=== PATIENT | female | born 1950 | race Caucasian/White ===

== ENCOUNTER → 2016-03-08 | Outpatient (CLI) | payer MEDICARE | LOC: OD 09:02 | PROVIDERS: ATTEND Internal Medicine Pulmonary Disease | DX: J96.02 Acute respiratory failure with hypercapnia (principal); J90 Pleural effusion, not elsewhere classified; J40 Bronchitis, not specified as acute or chronic | CPT/HCPCS: 71020 ==

== ENCOUNTER → 2016-04-16 | Outpatient (CLI) | payer MEDICARE, MEDICAID | LOC: RAD 09:07 | PROVIDERS: ATTEND Specialist | DX: C34.11 Malignant neoplasm of upper lobe, right bronchus or lung (principal) | CPT/HCPCS: 71250 ==

== ENCOUNTER 2016-07-09 16:57 | Inpatient (IN) | payer MEDICARE, MEDICAID ==
--- NOTE | 2016-07-09 17:03 | ER Document Report ---
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 Pt notes sob. denies any fevers or chills. Pt nurse notes thick secretions. TRAVEL OUTSIDE OF THE [place] IN LAST 30 DAYS: No - HPI Onset: Other Onset/Duration: Persistent Quality of pain: No pain Severity: Moderate Pain Level: Denies Associated symptoms: Productive cough, Shortness of breath Exacerbated by: Denies Relieved by: Denies Similar symptoms previously: Yes Recently seen / treated by doctor: Yes - Related Data Allergies/Adverse Reactions: vancomycin [Vancomycin] Allergy (Intermediate, Verified 08/21/15 16:32) cefepime [Cefepime] Allergy (Verified 08/21/15 16:32) Past Medical History - Social History Smoking Status: Never Smoker Cigarette use (# per day): No Chew tobacco use (# tins/day): No Smoking Education Provided: No Family History: Reviewed & Not Pertinent - Past Medical History Cardiac Medical History: Reports: Hx Atrial Fibrillation - Paroxysmal A. fib, Hx Congestive Heart Failure - Diastolic heart failure, Hx Hypercholesterolemia, Hx Hypertension Pulmonary Medical History: Reports: Hx Asthma, Hx Bronchitis, Hx COPD - HAS TRACH and vent, Hx Pneumonia Denies: Hx Tuberculosis Renal/ Medical History: Reports: Hx Renal Insufficiency Musculoskeltal Medical History: Reports Hx Arthritis - hands Psychiatric Medical History: Reports: Hx Anxiety Denies: Hx Depression Past Surgical History: Reports: Hx Abdominal Surgery, Hx Cholecystectomy, Hx Kidney (Renal Surgery) - kidney biopsy, Hx Orthopedic Surgery. Denies: Hx Pacemaker - Immunizations Hx Diphtheria, Pertussis, Tetanus Vaccination: Yes Hx Pneumococcal Vaccination: 03/27/07 Review of Systems - Review of Systems Notes: PHYSICAL EXAMINATION: GENERAL: obese female no acute distress HEAD: Atraumatic, normocephalic. EYES: Pupils equal round and reactive to light, extraocular movements intact, conjunctiva are normal. ENT: Nares patent, oropharynx clear without exudates. Moist mucous membranes. NECK: Normal range of motion, supple without lymphadenopathy coarse breath sounds at the bases , cath noted to have thick yellow sputum HEART: Regular rate and rhythm without murmurs ABDOMEN: Soft, nontender, nondistended abdomen. No guarding, no rebound. No masses appreciated. Female : deferred Musculoskeletal: Normal range of motion, no pitting or edema. No cyanosis. NEUROLOGICAL: Cranial nerves grossly intact. Normal speech, normal gait. Normal sensory, motor exams PSYCH: Normal mood, normal affect. SKIN: Warm, Dry, normal turgor, no rashes or lesions noted. Physical Exam - Vital signs Vitals: Resp Pulse Ox 23 H 91 L 07/09/16 17:09 07/09/16 17:09 Course - Re-evaluation Re-evalutation: 07/09/16 19:07 X-rays consistent with larger effusion on the right, I will attempt to drain the fluid 07/09/16 19:55 I was unable to move the thick clot to drain the chest. [facility] contacted 07/09/16 20:17 07/09/16 20:22 Spoke with thoracic surgeon at [facility], he requests ED to ED transfer. He does ask for tpa given through the vac, I asked charge nurse and they are unsure how to give this, will have ot defer at this time 07/09/16 21:09 Spoke to 2 IR physicians at [facility] and here, plan is for IR to place a chest tube here , will admit to Dr Louie 07/09/16 21:10 07/09/16 21:12 07/09/16 22:00 - Vital Signs Vital signs: Temp Pulse Resp BP Pulse Ox 99.3 F 21 H 141/89 H 93 07/09/16 17:20 07/09/16 17:16 07/09/16 17:16 07/09/16 17:16 - Laboratory Result Diagrams: 07/09/16 21:26 07/09/16 21:26 Laboratory results interpreted by me: 07/09/16 07/09/16 21:26 21:26 MCH 26.2 L MCHC 31.7 L RDW 17.0 H Seg Neutrophils % 80.5 H Lymphocytes % 7.9 L BUN 29 H Creatinine 2.17 H Est GFR ( Amer) 27 L Est GFR (Non-Af Amer) 23 L Alkaline Phosphatase 160 H Total Protein 5.6 L Albumin 3.1 L - Diagnostic Test Radiology reviewed: Image reviewed, Reports reviewed Discharge - Discharge Clinical Impression: Pleural effusion, pleural catheter obstruction Condition: Stable Disposition: ADMITTED OBSERVATION Admitting Provider: [facility] Unit Admitted: Telemetry
--- NOTE | 2016-07-09 18:57 | RADIOLOGY REPORT (SQ) ---
EXAM DESCRIPTION: CHEST SINGLE VIEW COMPLETED DATE/TIME: 07/09/2016 5:52 pm REASON FOR STUDY: hx pleural effusion, catheter clogged COMPARISON: 03/08/2016 EXAM PARAMETERS: NUMBER OF VIEWS: One view. TECHNIQUE: Single frontal radiographic view of the chest acquired. RADIATION DOSE: NA LIMITATIONS: None. FINDINGS: LUNGS AND PLEURA: Increased right pleural effusion - basilar airspace disease. Left lung appears clear. MEDIASTINUM AND HILAR STRUCTURES: Stable. HEART AND VASCULAR STRUCTURES: Stable. BONES: No acute findings. HARDWARE: Tracheostomy. OTHER: No other significant finding. IMPRESSION: Increased right pleural effusion - basilar airspace disease. TECHNICAL DOCUMENTATION: JOB ID: [id number]
[2016-07-09 21:37] LABS: ABSOLUTE EOSINOPHILS # (AUTO) 0.1 10^3/uL (0.0-0.6); ABSOLUTE LYMPHOCYTES (AUTO) 0.6 10^3/uL (0.5-4.7); ABSOLUTE MONOCYTES (AUTO) 0.7 10^3/uL (0.1-1.4); ABSOLUTE NEUT (AUTO) 5.6 10^3/uL (1.7-8.2); BASOPHILS % (AUTO) 0.4 % (0-2); HEMATOCRIT 38.3 % (36.0-47.0); HEMOGLOBIN 12.2 g/dL (12.0-15.5); HGB HCT DIFFERENCE -1.7; LYMPHOCYTES % (AUTO) 7.9 % (13-45); MEAN CORPUSCULAR HEMOGLOBIN 26.2 pg (27.0-33.4); MEAN CORPUSCULAR HGB CONC 31.7 g/dL (32.0-36.0); MEAN CORPUSCULAR VOLUME 83 fl (80-97); MONOCYTES % (AUTO) 10.2 % (3-13); RED BLOOD COUNT 4.65 10^6/uL (3.72-5.28); SEGMENTED NEUTROPHILS % (AUTO) 80.5 % (42-78)
[2016-07-09 21:49] LABS: ALANINE AMINOTRANSFERASE 29 U/L (9-52); ALBUMIN 3.1 g/dL (3.5-5.0); ALKALINE PHOSPHATASE 160 U/L (38-126); ANION GAP 8 (5-19); ASPARTATE AMINO TRANSFERASE 24 U/L (14-36); BILIRUBIN,DIRECT 0.4 mg/dL (0.0-0.4); BILIRUBIN,TOTAL 0.7 mg/dL (0.2-1.3); BLOOD UREA NITROGEN 29 mg/dL (7-20); CALCIUM 9.4 mg/dL (8.4-10.2); CARBON DIOXIDE 28 mmol/L (22-30); CHLORIDE 102 mmol/L (98-107); CREATININE RESULT 2.17 mg/dL (0.52-1.25); GLUCOSE 106 mg/dL (75-110); POTASSIUM 4.4 mmol/L (3.6-5.0); SODIUM 137.7 mmol/L (137-145); TOTAL PROTEIN 5.6 g/dL (6.3-8.2)
[2016-07-10] MEDS ORDERED: ACETAMINOPHEN 325 MG TABLET PO PRN (07:33)
[2016-07-10] MEDS ORDERED: ONDANSETRON HCL INJ/PF 4 MG/2 ML SDV IV PRN (07:33)
[2016-07-10] MEDS ORDERED: TRAMADOL HCL 50 MG TABLET PO PRN (07:37)
[2016-07-10] MEDS ORDERED: DOCUSATE SODIUM 100 MG/10 ML UDC PO PRN (07:37)
[2016-07-10] MEDS ORDERED: IPRATROPIUM/ALBUTEROL 0.5-2.5 MG/3 ML AMPUL NEB SCH (08:00)
[2016-07-10] MEDS ORDERED: ENOXAPARIN SODIUM INJ 30 MG/0.3 ML DISP.SYRIN SUBCUT SCH (08:00)
--- NOTE | 2016-07-10 08:09 | PDOC H&P ---
History of Present Illness Admission Date/PCP: 07/09/16 22:28 Patient complains of: Shortness of the breath History of Present Illness: PHILOMENA VALDEZ is a 66 year old female This is a 66-year-old female with a significant history of the respiratory failure and chronic mechanical ventilations at home and a history of the lung cancer and the recurrent pleural effusion and the status post pleural cath was placed and multiple other medical problems and a chronic tracheostomy came to the emergency department with the complaining of shortness of the breath and patient of a large sided pleural effusion and the pleural cath is not working. ER physicians tried to call the with the pleural cath was placed initially and suggest to try to unclog the catheter but unable to do it and patients underwent for the chest tube placement by the interventional radiology. Patient is currently doing well denied any chest pain currently on a portable mechanical ventilations and patient see a doctor Curseen as outpatients for that patient also see her Dr. Crump For the lung cancer Past Medical History Cardiac Medical History: Reports: Atrial Fibrillation - Paroxysmal A. fib, Congestive Heart Failure - Diastolic heart failure, Hyperlipidema, Hypertension Pulmonary Medical History: Reports: Asthma, Bronchitis, Chronic Obstructive Pulmonary Disease (COPD) - HAS TRACH and vent, Pneumonia Denies: Tuberculosis Malignancy Medical History: Reports: Lung Cancer GI Medical History: Reports: Gastroesophageal Reflux Disease Musculoskeltal Medical History: Reports: Arthritis - hands Psychiatric Medical History: Reports: Depression Hematology: Denies: Anemia Past Surgical History Past Surgical History: Reports: Cholecystectomy, Orthopedic Surgery, Other - Status post pleural cath the right side at the Tracheostomy Denies: Pacemaker Social History Smoking Status: Former Smoker Frequency of Alcohol Use: None Hx Recreational Drug Use: No Drugs: None Hx Prescription Drug Abuse: No Family History Family History: Reviewed & Not Pertinent Parental Family History Reviewed: Yes Children Family History Reviewed: Yes Sibling(s) Family History Reviewed.: Yes Medication/Allergy Home Medications: Atorvastatin Calcium [Lipitor 10 mg Tablet] 10 mg PO DAILY 03/29/15 Docusate Sodium [Colace Udc 100 mg/10 ml Oral Soln] 100 mg PO DAILY PRN Alprazolam 0.25 mg PO TID 08/21/15 Apixaban [Eliquis 2.5 mg Tablet] 2.5 mg PO BID 08/21/15 Cholecalciferol (Vitamin D3) [Vitamin D3] 1,000 unit PO DAILY 08/21/15 Diltiazem HCl [Cartia Xt] 240 mg PO DAILY 08/21/15 Hydralazine HCl 50 mg PO BID 08/21/15 Magnesium Oxide [Mag-Ox 400 mg Tablet] 400 mg PO DAILY 08/21/15 Omeprazole 40 mg PO DAILY 08/21/15 Phosphorus #1 [Virt-Phos 250 Neutral Tablet] 250 mg PO 5XD 08/21/15 Sertraline HCl 150 mg PO DAILY 08/21/15 Tramadol HCl 50 mg PO Q6H PRN 08/21/15 Trazodone HCl 100 mg PO QHS 08/21/15 Levofloxacin [Levaquin 250 mg Tablet] 250 mg PO DAILY #0 tablet 08/25/15 Allergies/Adverse Reactions: lorazepam Allergy (Severe, Verified 07/10/16 01:39) RASH vancomycin [Vancomycin] Allergy (Intermediate, Verified 08/21/15 16:32) cefepime [Cefepime] Allergy (Verified 08/21/15 16:32) sulfamethoxazole [From Bactrim] Allergy (Verified 07/10/16 01:40) trimethoprim [From Bactrim] Allergy (Verified 07/10/16 01:40) Review of Systems Constitutional: ABSENT: chills, fever(s), headache(s), weight gain, weight loss Eyes: ABSENT: visual disturbances Ears: ABSENT: hearing changes Cardiovascular: PRESENT: dyspnea on exertion. ABSENT: chest pain, edema, orthropnea, palpitations Respiratory: PRESENT: dyspnea. ABSENT: cough, hemoptysis Gastrointestinal: ABSENT: abdominal pain, constipation, diarrhea, hematemesis, hematochezia, nausea, vomiting Genitourinary: ABSENT: dysuria, hematuria Musculoskeletal: ABSENT: joint swelling Integumentary: ABSENT: rash, wounds Neurological: ABSENT: abnormal gait, abnormal speech, confusion, dizziness, focal weakness, syncope Psychiatric: ABSENT: anxiety, depression, homidical ideation, suicidal ideation Endocrine: ABSENT: cold intolerance, heat intolerance, menstrual abnormalities, polydipsia, polyuria Hematologic/Lymphatic: ABSENT: easy bleeding, easy bruising, lymphadenopathy Physical Exam Vital Signs: Temp Pulse Resp BP Pulse Ox 98.1 F 99 19 104/82 96 07/10/16 03:39 07/10/16 03:39 07/10/16 03:39 07/10/16 03:39 07/10/16 05:53 Intake & Output 07/09/16 07/10/16 07/11/16 06:59 06:59 06:59 Intake Total 550 Output Total 800 Balance -250 Weight 117.1 kg General appearance: PRESENT: no acute distress Head exam: PRESENT: normocephalic Eye exam: PRESENT: conjunctiva pink, PERRLA Additional comments: Tracheostomy site is intact Neck exam: ABSENT: full ROM, JVD Respiratory exam: PRESENT: clear to auscultation don, crackles Additional comments: Right-sided chest tube is intact in the draining end of the pleural cath is also intact which is not working Cardiovascular exam: PRESENT: +S1, +S2 GI/Abdominal exam: PRESENT: normal bowel sounds, soft Neurological exam: PRESENT: alert, awake, oriented to person, oriented to place Psychiatric exam: PRESENT: anxious Results Impressions: Chest X-Ray 07/09/16 17:01 IMPRESSION: Increased right pleural effusion - basilar airspace disease. Assessment & Plan - Diagnosis (1) Pleural effusion Is this a current diagnosis for this admission?: YesPlan: Due to the malignant pleural effusions and will consult the pulmonary for further evaluations and consult the surgery for further evaluation about the not working pleural cath (2) Atrial fibrillation Qualifiers: Atrial fibrillation type: chronic Qualified Code(s): I48.2 - Chronic atrial fibrillation Is this a current diagnosis for this admission?: YesPlan: Currently on Eliquis (3) Chronic kidney disease (CKD) Qualifiers: Chronic kidney disease stage: stage 3 (moderate) Qualified Code(s): N18.3 - Chronic kidney disease, stage 3 (moderate) Is this a current diagnosis for this admission?: YesPlan: Currently stable (4) Congestive heart failure (CHF) Qualifiers: Congestive heart failure type: diastolic Congestive heart failure chronicity: unspecified congestive heart failure chronicity Qualified Code(s ): I50.30 - Unspecified diastolic (congestive) heart failure Is this a current diagnosis for this admission?: YesPlan: Continue current medications (5) Obstructive sleep apnea hypopnea, severe Is this a current diagnosis for this admission?: YesPlan: Currently on a tracheostomy and mechanical ventilations (6) Respiratory failure, acute and chronic Qualifiers: Respiratory failure complication: hypoxia and hypercapnia Qualified Code(s): J96.21 - Acute and chronic respiratory failure with hypoxia Is this a current diagnosis for this admission?: YesPlan: Currently on mechanical ventilations - Time Time Spent: 30 to 50 Minutes Medications reviewed and adjusted accordingly: Yes Anticipated discharge: Home Within: Other - Inpatient Certification Medical Necessity: Need Close Monitoring Due to Risk of Patient Decompensation Post Hospital Care: D/C Casualty Insurance Claim Adjuster Documentation - Plan Summary Plan Summary: Consult the pulmonary and the surgery for further evaluations
--- NOTE | 2016-07-10 08:25 | RADIOLOGY REPORT (SQ) ---
EXAM DESCRIPTION: CT THORACENTESIS W/CHEST TUBE COMPLETED DATE/TIME: 07/10/2016 12:26 am REASON FOR STUDY: plueral effusion COMPARISON: None. FLUORO TIME: 26.5 seconds LIMITATIONS: None. PROCEDURE: After obtaining informed consent, the patient was brought to the CT suite and was placed left lateral decubitus position on the CT gurney. The patient was prepped and draped in the usual carmelina rile fashion . Axial images were obtained for targeting of theright pleural effusion. An appropriate access site was selected. No IV sedation was administered Documentation face to face time, the performing proceduralist, spent monitoring the patient: 30minute s. The skin, soft tissues, and pleural surface were anesthetized with 1% lidocaine. Small skin incision was made. Using CT fluoroscopic guidance an 18 gauge 9 cm needle was advanced into the right pleura l effusion until fluid was aspirated. An 035 wire was then advanced through the needle and coiled wi thin the pleural effusions. After serial dilatation a 10 Guinean pigtail drainage catheter was advanc ed over the wire into the collection. Catheter was confirmed to be within the collection. The wire was removed and the distal loop was formed. Catheter was then secured in place and dressed sterilely . Catheter was connected to a pleura vac wall suction. The patient left the CT suite stable conditi on. IMPRESSION: CT-guided at 10 Guinean right pigtail chest tube placement. COMMENT: Patient medication list reviewed:Yes- Quality ID# [id number]:Eligible professional attests to docu menting in the medical record they obtained, updated, or reviewed the patient's current medications. Quality ID #76: The patient was prepped and draped using maximum sterile barrier technique including cap, mask, sterile gown, sterile gloves, a large sterile sheet, hand hygiene, and 2% Chlorhexidine fo r cutaneous antisepsis. When ultrasound is used, sterile ultrasound techniques are followed requiring sterile gel and sterile probes. Quality ID 145: Final reports for procedures using fluoroscopy that document radiation exposure cindy danial, or exposure time and number of fluorographic images (if radiation exposure indices are not avail able) TECHNICAL DOCUMENTATION: JOB ID: [id number] [id number] [employer]- All Rights Reserved
[2016-07-10] MEDS ORDERED: DOCUSATE SODIUM 100 MG CAPSULE PO PRN (08:29)
--- NOTE | 2016-07-10 08:34 | Physician Advisory Note ---
Physician Advisor ProgressNote .: [facility] have reviewed the medical record for this patient. Physician Advisor Statement: Possible documentation opportunities if attending agrees: 1. "worsening Rt pleural effusion due to small cell lung CA w/thick secretions obstructing pleural catheter ..." 2. "chronic diastolic CHF" 3. "paroxysmal Afib" 4. "COPD & obesity hypoventilation syndrome w/chronic hypercapneic resp failure requiring home ventilator via trach" 5. "severe NAKUL" 6. "CKD stage 4" 7. type of breast CA 8. Medical necessity: please document reasons pt can't just have outpt procedure today as Obs status to address pleural cath obstruction w/return to home immediately afterwards - why Inpt x at least 2MNs is required in this case. Otherwise, she should be Obs status. As always, if concerned about any unstable VS or abnormal labs, please comment on them - what bad things they might indicate, why they concern you - & note what doing about them. Please also document each day the potential clinical problems you are concerned could occur if pt not kept in hospital for tx at this time. (These points are christina - if present in each note, attending's status decision should be sufficiently supported.) Status: Pt with persistent tachycardia 90s-140s since arrival, w/intermittent tachypnea. At 03:39 this AM, pt sat 79% on trach collar O2. Tx & monitoring in inpatient hospital setting medically reasonable & necessary to protect pt's health, safety, & medical condition? Thanks for your help with documentation accuracy/specificity improvement! Angely Bañuelos MD [facility] Physician Advisor, Fellow of Hospital Medicine
[2016-07-10] MEDS ORDERED: ALTEPLASE INJ 2 MG VIAL (CATH CLEARANCE) INJ PRN (09:57)
[2016-07-10] MEDS ORDERED: SERTRALINE HCL 50 MG TABLET PO SCH (10:00)
[2016-07-10] MEDS ORDERED: DILTIAZEM HCL 240 MG CAPSULE.CR PO SCH (10:00)
[2016-07-10] MEDS ORDERED: APIXABAN 2.5 MG TABLET PO SCH (10:00)
[2016-07-10] MEDS ORDERED: DILTIAZEM HCL 120 MG CAP.SR.24H PO SCH (10:00)
[2016-07-10] MEDS ORDERED: ACETYLCYSTEINE 20% SOLN 800 MG/4 ML VIAL.NEB NEB PRN (10:00)
[2016-07-10] MEDS ORDERED: (PENDING PHARMACY ID) (Cholecalciferol (Vitamin D3) [Vitamin D3] 1,000 UNIT) PO SCH (10:00)
[2016-07-10] MEDS ORDERED: LEVOFLOXACIN 250 MG TABLET PO SCH (10:00)
[2016-07-10] MEDS ORDERED: CHOLECALCIFEROL (D3) 1,000 UNIT TABLET PO SCH (10:00)
[2016-07-10] MEDS ORDERED: ATORVASTATIN CALCIUM 10 MG TABLET PO SCH (10:00)
[2016-07-10] MEDS ORDERED: LANSOPRAZOLE 30 MG TAB.RAP.DR PO SCH (10:00)
[2016-07-10] MEDS ORDERED: MAGNESIUM OXIDE 400 MG TABLET PO SCH (10:00)
--- NOTE | 2016-07-10 10:17 | PDOC CONSULTATION ---
History of Present Illness Admission Date/PCP: 07/10/16 07:33 Patient complains of: sob History of Present Illness: 66-year-old female with history of unresectable lung cancer with malignant right pleural effusion status post Pleurx catheter placement in the past. Family noted that the catheter was no longer draining fluid and subsequently brought the patient into the hospital. She has been complaining of some lower chest discomfort along with shortness of breath. She underwent pigtail catheter placement in radiology with subsequent drainage of clear fluid. Patient has had improvement of her shortness of breath. He has COPD she has long-standing trach. Patient has atrial fib for which she is on anticoagulation. Past Medical History Cardiac Medical History: Reports: Atrial Fibrillation - Paroxysmal A. fib, Congestive Heart Failure - Diastolic heart failure, Hyperlipidema, Hypertension Pulmonary Medical History: Reports: Asthma, Bronchitis, Chronic Obstructive Pulmonary Disease (COPD) - HAS TRACH and vent, Pneumonia Denies: Tuberculosis Malignancy Medical History: Reports: Lung Cancer GI Medical History: Reports: Gastroesophageal Reflux Disease Musculoskeltal Medical History: Reports: Arthritis - hands Psychiatric Medical History: Reports: Depression Hematology: Denies: Anemia Past Surgical History Past Surgical History: Reports: Cholecystectomy, Orthopedic Surgery, Other - Status post pleural cath the right side at the Tracheostomy Denies: Pacemaker Social History Smoking Status: Former Smoker Frequency of Alcohol Use: None Hx Recreational Drug Use: No Drugs: None Hx Prescription Drug Abuse: No Family History Family History: Reviewed & Not Pertinent Parental Family History Reviewed: No Children Family History Reviewed: No Sibling(s) Family History Reviewed.: No Medication/Allergy Home Medications: Alprazolam [Xanax 0.25 mg Tablet] 0.25 mg PO TID@0900,1600,209907/10/16 Apixaban [Eliquis 2.5 mg Tablet] 2.5 mg PO BID@0900,209907/10/16 Atorvastatin Calcium [Lipitor 10 mg Tablet] 10 mg PO DAILY@209907/10/16 Diltiazem HCl [Cardizem Cd 120 mg Capsule] 120 mg PO DAILY@89907/10/16 Erlotinib HCl [Tarceva] 75 mg PO DAILY@229907/10/16 Ferrous Sulfate [Feosol 325 mg Tablet] 325 mg PO DAILY@89907/10/16 Folic Acid [Folvite 1 mg Tablet] 1 mg PO DAILY@89907/10/16 Ipratropium/Albuterol Sulfate [Duoneb 3 ml Ampul] 3 ml NEB RTQ4 07/10/16 Magnesium Oxide [Mag-Ox 400 mg Tablet] 400 mg PO DAILY@0907/10/16 Promethazine HCl [Phenergan 25 mg Tablet] 25 mg PO DAILY@2230 07/10/16 Sertraline HCl [Zoloft 50 mg Tablet] 150 mg PO DAILY@2100 07/10/16 Tramadol HCl [Ultram 50 mg Tablet] 50 mg PO Q6HP PRN 07/10/16 Trazodone HCl [Desyrel] 100 mg PO DAILY 07/10/16 Allergies/Adverse Reactions: lorazepam Allergy (Severe, Verified 07/10/16 01:39) RASH vancomycin [Vancomycin] Allergy (Intermediate, Verified 08/21/15 16:32) cefepime [Cefepime] Allergy (Verified 08/21/15 16:32) sulfamethoxazole [From Bactrim] Allergy (Verified 07/10/16 01:40) trimethoprim [From Bactrim] Allergy (Verified 07/10/16 01:40) Physical Exam Vital Signs: Temp Pulse Resp BP Pulse Ox 98.9 F 80 20 126/84 H 90 L 07/10/16 07:47 07/10/16 07:51 07/10/16 07:51 07/10/16 07:47 07/10/16 07:51 General appearance: PRESENT: no acute distress, cooperative Neck exam: PRESENT: tracheostomy Respiratory exam: PRESENT: other - Decreased breath sounds on the right base. Pleurx catheter in place as well as a pigtail catheter posteriorly. Small air leak seen from the Pleurx catheter. Results Impressions: Thoracentesis 07/09/16 21:57 IMPRESSION: CT-guided at 10 Persian right pigtail chest tube placement. Assessment & Plan - Diagnosis (1) Pleural effusion Is this a current diagnosis for this admission?: YesPlan: Recurrent pleural effusion. The Pleurx catheter position appears perfect on the CT scan but that it is not working. The pigtail catheter has been dislodged into the subcutaneous space. Therefore it was pulled and dressings applied. I have reviewed all of her x-ray studies with the radiologist today and I feel that she would be best served by a VATS procedure. Suspect that she has loculations and that a new Pleurx catheter is likely to become clogged again. I have discussed my recommendation with Dr. Martin who will attempt to contact her thoracic surgeon for this procedure.
[2016-07-10] MEDS: HYDRALAZINE HCL 50 MG TABLET PO SCH ×2 (11:03→18:16)
[2016-07-10] MEDS: ALPRAZOLAM 0.25 MG TABLET PO SCH ×3 (11:04→18:15)
[2016-07-10] MEDS: PHOSPHORUS #1 250 MG TABLET PO SCH ×4 (11:07→20:07)
--- NOTE | 2016-07-10 11:43 | RADIOLOGY REPORT (SQ) ---
EXAM DESCRIPTION: CHEST SINGLE VIEW COMPLETED DATE/TIME: 07/10/2016 8:29 am REASON FOR STUDY: PLEURAL EFFUSION COMPARISON: CT chest 07/09/2016 AP chest 07/09/2016, 03/08/2016, 08/23/2016, 04/22/2015 EXAM PARAMETERS: NUMBER OF VIEWS: One view. TECHNIQUE: Single frontal radiographic view of the chest acquired. RADIATION DOSE: NA LIMITATIONS: None. FINDINGS: LUNGS AND PLEURA: The previously placed right pleural space pigtail catheter has been pull ed back, the majority of the pigtail loop is outside the pleural space all. Trace right chest wall a ir. No right pneumothorax. Partial clearing of the subpulmonic effusions since the tube placement. There is still a moderate re sidual pleural effusion the major fissure and tracking along the periphery of the right upper hemitho rax. Unchanged right middle and lower lobe consolidation atelectasis versus pneumonia. Left lung well inflated and clear. No left pleural effusion. No left pneumothorax. MEDIASTINUM AND HILAR STRUCTURES: No masses. Contour normal. HEART AND VASCULAR STRUCTURES: Stable mild to moderate cardiomegaly BONES: No acute findings. HARDWARE: Tracheostomy tube tip midtrachea. OTHER: No other significant finding. IMPRESSION: Slight decrease in the right pleural fluid compared to pre chest tube placement film on 07/09/2016 Pigtail catheter placed under CT guidance has been pulled back, the pigtail loop is outside the chest , distal tip of the catheter may be in the pleural space. These films were reviewed with Dr. Patrick TECHNICAL DOCUMENTATION: JOB ID: [id number]
[2016-07-10] MEDS: IPRATROPIUM/ALBUTEROL 0.5-2.5 MG/3 ML AMPUL NEB SCH ×3 (11:44→20:16)
--- NOTE | 2016-07-10 17:46 | PDOC CONSULTATION ---
Consultation Consult Date: 07/10/16 Attending physician:: RESHMA RAMESH Consult reason:: R pleural effusion,NSCLC,COPD,Chronic resp fail History of Present Illness Admission Date/PCP: 07/10/16 07:33 History of Present Illness: 66-year-old female with history of unresectable lung cancer with malignant right pleural effusion status post Pleurx catheter placement in the past. Family noted that the catheter was no longer draining fluid and subsequently brought the patient into the hospital. She has been complaining of some lower chest discomfort along with shortness of breath. She underwent pigtail catheter placement in radiology with subsequent drainage of clear fluid. Patient has had improvement of her shortness of breath. she has long-standing trach. Patient has atrial fib for which she is on anticoagulation.Pleurodex catheter failed to drain subsequently noninvasive radiologist place a second catheter however this is nonfunctional as well discussed with surgery who felt that the patient probably needs a VATS and should be seen by thoracic surgery Past Medical History Cardiac Medical History: Reports: Atrial Fibrillation - Paroxysmal A. fib, Congestive Heart Failure - Diastolic heart failure, Hyperlipidema, Hypertension Pulmonary Medical History: Reports: Asthma, Bronchitis, Chronic Obstructive Pulmonary Disease (COPD) - HAS TRACH and vent, Pneumonia Denies: Tuberculosis Malignancy Medical History: Reports: Lung Cancer GI Medical History: Reports: Gastroesophageal Reflux Disease Musculoskeltal Medical History: Reports: Arthritis - hands Psychiatric Medical History: Reports: Depression Hematology: Denies: Anemia Past Surgical History Past Surgical History: Reports: Cholecystectomy, Orthopedic Surgery, Other - Status post pleural cath the right side at the Tracheostomy Denies: Pacemaker Social History Information Source: Patient, [facility] Records Lives with: Family Smoking Status: Former Smoker Passive smoke exposure as: Both Frequency of Alcohol Use: None Hx Recreational Drug Use: No Drugs: None Hx Prescription Drug Abuse: No Do you have pets?: Yes Have you had any respiratory illnesses as a child?: No Have you been exposed to any sick contacts recently?: No Have you had any recent respiratory illnesses?: No Have you travelled outside of [place] in the past 12 months?: No Family History Family History: Reviewed & Not Pertinent Parental Family History Reviewed: Yes Children Family History Reviewed: Yes Sibling(s) Family History Reviewed.: Yes Medication/Allergy Home Medications: Alprazolam [Xanax 0.25 mg Tablet] 0.25 mg PO TID@0900,1600,2100 07/10/16 Apixaban [Eliquis 2.5 mg Tablet] 2.5 mg PO BID@09,209907/10/16 Atorvastatin Calcium [Lipitor 10 mg Tablet] 10 mg PO DAILY@209907/10/16 Diltiazem HCl [Cardizem Cd 120 mg Capsule] 120 mg PO DAILY@89907/10/16 Erlotinib HCl [Tarceva] 75 mg PO DAILY@229907/10/16 Ferrous Sulfate [Feosol 325 mg Tablet] 325 mg PO DAILY@89907/10/16 Folic Acid [Folvite 1 mg Tablet] 1 mg PO DAILY@89907/10/16 Ipratropium/Albuterol Sulfate [Duoneb 3 ml Ampul] 3 ml NEB RTQ4 07/10/16 Magnesium Oxide [Mag-Ox 400 mg Tablet] 400 mg PO DAILY@89907/10/16 Promethazine HCl [Phenergan 25 mg Tablet] 25 mg PO DAILY@222907/10/16 Sertraline HCl [Zoloft 50 mg Tablet] 150 mg PO DAILY@209907/10/16 Tramadol HCl [Ultram 50 mg Tablet] 50 mg PO Q6HP PRN 07/10/16 Trazodone HCl [Desyrel] 100 mg PO DAILY 07/10/16 Allergies/Adverse Reactions: lorazepam Allergy (Severe, Verified 07/10/16 01:39) RASH vancomycin [Vancomycin] Allergy (Intermediate, Verified 08/21/15 16:32) cefepime [Cefepime] Allergy (Verified 08/21/15 16:32) sulfamethoxazole [From Bactrim] Allergy (Verified 07/10/16 01:40) trimethoprim [From Bactrim] Allergy (Verified 07/10/16 01:40) Physical Exam Vital Signs: Temp Pulse Resp BP Pulse Ox 97.6 F 67 18 140/88 H 97 07/10/16 11:21 07/10/16 15:46 07/10/16 15:46 07/10/16 11:21 07/10/16 15:46 Intake & Output 07/09/16 07/10/16 07/11/16 06:59 06:59 06:59 Intake Total 500 Output Total 400 Balance 100 General appearance: PRESENT: no acute distress, cooperative, disheveled, hard of hearing, morbidly obese, well-developed Head exam: PRESENT: atraumatic, normocephalic Eye exam: PRESENT: conjunctiva pale, EOMI Mouth exam: PRESENT: dry mucosa, neck supple, other - 6. Shiley trach in the midline;Pleurodex catheter right anterior chest wall 6 intercostal space anterior axillary line Neck exam: ABSENT: carotid bruit, JVD, lymphadenopathy, thyromegaly Respiratory exam: PRESENT: decreased breath sounds, prolonged expiratory phas, rhonchi, unlabored, wheezes Cardiovascular exam: PRESENT: irregular rhythm Pulses: PRESENT: normal radial pulses GI/Abdominal exam: PRESENT: normal bowel sounds, soft. ABSENT: distended, guarding, mass, organolmegaly, rebound, tenderness Rectal exam: PRESENT: deferred Gentrourinary exam: PRESENT: indwelling catheter Musculoskeletal exam: PRESENT: normal inspection Neurological exam: PRESENT: alert, awake Psychiatric exam: PRESENT: normal mood Skin exam: PRESENT: dry, warm Results Impressions: Thoracentesis 07/09/16 21:57 IMPRESSION: CT-guided at 10 Nepalese right pigtail chest tube placement. Chest X-Ray 07/10/16 06:00 IMPRESSION: Slight decrease in the right pleural fluid compared to pre chest tube placement film on 07/09/2016 Pigtail catheter placed under CT guidance has been pulled back, the pigtail loop is outside the chest, distal tip of the catheter may be in the pleural space. These films were reviewed with Dr. Patrick Assessment & Plan - Diagnosis (1) Pleural effusion Is this a current diagnosis for this admission?: YesPlan: Large effusion accumulating on the right current catheter little to no drainage (2) Acute hypercapnic respiratory failure Is this a current diagnosis for this admission?: YesPlan: Patient maintained on trilogy (3) Atrial fibrillation Qualifiers: Atrial fibrillation type: chronic Qualified Code(s): I48.2 - Chronic atrial fibrillation Is this a current diagnosis for this admission?: Yes (4) Chronic kidney disease (CKD) Qualifiers: Chronic kidney disease stage: stage 3 (moderate) Qualified Code(s): N18.3 - Chronic kidney disease, stage 3 (moderate) Is this a current diagnosis for this admission?: Yes (5) Congestive heart failure (CHF) Qualifiers: Congestive heart failure type: diastolic Congestive heart failure chronicity: unspecified congestive heart failure chronicity Qualified Code(s ): I50.30 - Unspecified diastolic (congestive) heart failure Is this a current diagnosis for this admission?: Yes (6) Obesity hypoventilation syndrome Is this a current diagnosis for this admission?: YesPlan: Maintained on trilogy (7) Obstructive sleep apnea hypopnea, severe Is this a current diagnosis for this admission?: YesPlan: Maintained on trilogy
--- NOTE | 2016-07-10 18:04 | PDOC TRANSFER SUMMARY ---
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 (2) Atrial fibrillation Is this a current diagnosis for this admission?: YesDiagnosis Summary: Currently stable on Eliquis (3) Chronic kidney disease (CKD) Is this a current diagnosis for this admission?: YesDiagnosis Summary: Currently stable (4) Congestive heart failure (CHF) Is this a current diagnosis for this admission?: YesDiagnosis Summary: Diastolic heart failure (5) Obstructive sleep apnea hypopnea, severe Is this a current diagnosis for this admission?: YesDiagnosis Summary: Status post tracheostomy (6) Respiratory failure, acute and chronic Is this a current diagnosis for this admission?: YesDiagnosis Summary: Continues the mechanical ventilations (7) Lung cancer Is this a current diagnosis for this admission?: YesDiagnosis Summary: Small cell carcinoma of the lung currently see a Dr. Crump - Transfer Medications Home Medications: Alprazolam [Xanax 0.25 mg Tablet] 0.25 mg PO TID@0900,1600,209907/10/16 Apixaban [Eliquis 2.5 mg Tablet] 2.5 mg PO BID@899,209907/10/16 Atorvastatin Calcium [Lipitor 10 mg Tablet] 10 mg PO DAILY@209907/10/16 Diltiazem HCl [Cardizem Cd 120 mg Capsule] 120 mg PO DAILY@89907/10/16 Erlotinib HCl [Tarceva] 75 mg PO DAILY@229907/10/16 Ferrous Sulfate [Feosol 325 mg Tablet] 325 mg PO DAILY@89907/10/16 Folic Acid [Folvite 1 mg Tablet] 1 mg PO DAILY@89907/10/16 Ipratropium/Albuterol Sulfate [Duoneb 3 ml Ampul] 3 ml NEB RTQ4 07/10/16 Magnesium Oxide [Mag-Ox 400 mg Tablet] 400 mg PO DAILY@89907/10/16 Promethazine HCl [Phenergan 25 mg Tablet] 25 mg PO DAILY@222907/10/16 Sertraline HCl [Zoloft 50 mg Tablet] 150 mg PO DAILY@2099 07/10/16 Tramadol HCl [Ultram 50 mg Tablet] 50 mg PO Q6HP PRN 07/10/16 Trazodone HCl [Desyrel] 100 mg PO DAILY 07/10/16 Transfer Medications: Current Medications Acetaminophen (Tylenol 325 Mg Tablet) 650 mg PO Q4HP PRN Stop: 08/09/16 07:32 Acetylcysteine (Mucomist 20% Soln 800 Mg/4 Ml) 600 mg NEB RTBID [facility] Stop: 08/09/16 19:59 Albuterol/Ipratropium (Duoneb 3 Ml Ampul) 3 ml NEB [id number] [facility] Stop: 08/09/16 11:59 Last Admin: 07/10/16 15:46 Dose: 3 ml Alprazolam (Xanax 0.25 Mg Tablet) 0.25 mg PO TID [facility] Stop: 07/17/16 09:59 Last Admin: 07/10/16 14:27 Dose: 0.25 mg Alteplase, Recombinant (Activase Cathflo Inj 2 Mg (Cath Clearance)) 2 mg INJ .PROCEDURE PRN PRN Reason: THIS MED IS NOT "PRN" Stop: 07/10/16 23:59 Atorvastatin Calcium (Lipitor 10 Mg Tablet) 10 mg PO DAILY [facility] Stop: 08/09/16 09:59 Last Admin: 07/10/16 11:03 Dose: 10 mg Cholecalciferol (Vitamin D3 1000 Unit Tablet) 1,000 unit PO DAILY [facility] Stop: 08/09/16 09:59 Last Admin: 07/10/16 11:04 Dose: 1,000 unit Diltiazem HCl (Cardizem Cd 240 Mg Capsule.Cr) 240 mg PO DAILY [facility] Stop: 08/09/16 09:59 Last Admin: 07/10/16 11:03 Dose: 240 mg Docusate Sodium (Colace 100 Mg Capsule) 100 mg PO DAILYP PRN PRN Reason: CONSTIPATION Stop: 08/09/16 08:28 Hydralazine HCl (Apresoline 50 Mg Tablet) 50 mg PO BID [facility] Stop: 08/09/16 09:59 Last Admin: 07/10/16 11:03 Dose: 50 mg Lansoprazole (Prevacid 30 Mg Odt Tablet) 30 mg PO DAILY [facility] Stop: 08/09/16 09:59 Last Admin: 07/10/16 11:02 Dose: 30 mg Levofloxacin (Levaquin 250 Mg Tablet) 250 mg PO DAILY [facility] Stop: 07/17/16 09:59 Last Admin: 07/10/16 11:03 Dose: 250 mg Magnesium Oxide (Mag-Ox 400 Mg Tablet) 400 mg PO DAILY [facility] Stop: 08/09/16 09:59 Last Admin: 07/10/16 11:04 Dose: 400 mg Morphine Sulfate (Morphine 10 Mg/Ml Inj) 2 mg IV Q4HP PRN PRN Reason: PAIN 3-5 Stop: 07/17/16 17:41 Ondansetron HCl (Zofran Inj/Pf 4 Mg/2 Ml Sdv) 4 mg IV Q4HP PRN Stop: 08/09/16 07:32 Potassium Phosphate (K-Phos Neutral 250 Mg Tablet) 250 mg PO 5XD [facility] Stop: 08/09/16 09:59 Last Admin: 07/10/16 14:26 Dose: 250 mg Sertraline HCl (Zoloft 50 Mg Tablet) 150 mg PO DAILY [facility] Stop: 08/09/16 09:59 Last Admin: 07/10/16 11:04 Dose: 150 mg Tramadol HCl (Ultram 50 Mg Tablet) 50 mg PO Q6HP PRN PRN Reason: PAIN Stop: 07/17/16 07:36 Trazodone HCl (Desyrel 50 Mg Tablet) 100 mg PO QHS [facility] Stop: 08/09/16 21:59 - Allergies Allergies/Adverse Reactions: lorazepam Allergy (Severe, Verified 07/10/16 01:39) RASH vancomycin [Vancomycin] Allergy (Intermediate, Verified 08/21/15 16:32) cefepime [Cefepime] Allergy (Verified 08/21/15 16:32) sulfamethoxazole [From Bactrim] Allergy (Verified 07/10/16 01:40) trimethoprim [From Bactrim] Allergy (Verified 07/10/16 01:40) Hospital Course Hospital Course: There is a 66-year-old female with a significant medical problems including the chronic respiratory failure and a chronic A. fib and congestive heart failure and also on a mechanical ventilation at home's and a history of the tracheostomy and history of the small cell carcinoma of the lung and currently see a doctor Theron for that. Patient have a history of the recurrent pleural effusion and the pleural cath was placed 6 month back and was working okay until yesterday and came to the emergency department with a complaint of shortness of the breath and found a large sided right-sided pleural effusion and the radiologist put the small catheter in the drain 800 cc of the fluid and the surgeon was consulted this morning and the catheter was disclosed and at this point DC the catheter. Patient's otherwise remained stable other medical problems And discussed with the pulmonary and the surgery and suggested transfer the patient was CT surgeon for further evaluations Physical Exam Vital Signs: Temp Pulse Resp BP Pulse Ox 97.6 F 67 18 140/88 H 97 07/10/16 11:21 07/10/16 15:46 07/10/16 15:46 07/10/16 11:21 07/10/16 15:46 Intake & Output 07/09/16 07/10/16 07/11/16 06:59 06:59 06:59 Intake Total 510 Output Total 400 Balance 110 General appearance: PRESENT: no acute distress Eye exam: PRESENT: PERRLA Respiratory exam: PRESENT: decreased breath sounds Cardiovascular exam: PRESENT: +S1, +S2 Neurological exam: PRESENT: alert, awake, oriented to person, oriented to place Psychiatric exam: PRESENT: anxious Results Impressions: Thoracentesis 07/09/16 21:57 IMPRESSION: CT-guided at 10 Congolese right pigtail chest tube placement. Chest X-Ray 07/10/16 06:00 IMPRESSION: Slight decrease in the right pleural fluid compared to pre chest tube placement film on 07/09/2016 Pigtail catheter placed under CT guidance has been pulled back, the pigtail loop is outside the chest, distal tip of the catheter may be in the pleural space. These films were reviewed with Dr. Patrick Plan Time Spent: Greater than 30 Minutes - Discussed with the patient and the family very extensively regarding the patient's current conditions with a not a very good prognosis for the long-term. Discussed with the CT surgeon at the and suggest nothing much they can offer but the baby had tried to put the new pleural catheter when the come to the hospitalist service.
[2016-07-10] MEDS: MORPHINE SULFATE 10 MG/ML INJ IV PRN (18:28)
[2016-07-10] MEDS ORDERED: ACETYLCYSTEINE 20% SOLN 800 MG/4 ML VIAL.NEB NEB SCH (20:00)
[2016-07-10] MEDS: ACETYLCYSTEINE 20% SOLN 800 MG/4 ML VIAL.NEB NEB SCH (20:16)
[2016-07-10] MEDS ORDERED: TRAZODONE HCL 50 MG TABLET PO SCH (22:00)
[2016-07-11 04:12] VITALS: BP 107/52
[2016-07-11 04:48] LABS: ABSOLUTE EOSINOPHILS # (AUTO) 0.1 10^3/uL (0.0-0.6); ABSOLUTE LYMPHOCYTES (AUTO) 0.4 10^3/uL (0.5-4.7); ABSOLUTE MONOCYTES (AUTO) 0.9 10^3/uL (0.1-1.4); ABSOLUTE NEUT (AUTO) 6.8 10^3/uL (1.7-8.2); BASOPHILS % (AUTO) 0.5 % (0-2); EOSINOPHILS % (AUTO) 0.6 % (0-6); HEMATOCRIT 37.2 % (36.0-47.0); HEMOGLOBIN 11.7 g/dL (12.0-15.5); HGB HCT DIFFERENCE -2.1; LYMPHOCYTES % (AUTO) 5.2 % (13-45); MEAN CORPUSCULAR HEMOGLOBIN 25.8 pg (27.0-33.4); MEAN CORPUSCULAR HGB CONC 31.4 g/dL (32.0-36.0); MEAN CORPUSCULAR VOLUME 82 fl (80-97); MONOCYTES % (AUTO) 11.2 % (3-13); RED BLOOD COUNT 4.53 10^6/uL (3.72-5.28); RED CELL DISTRIBUTION WIDTH 16.8 % (11.5-14.0); SEGMENTED NEUTROPHILS % (AUTO) 82.5 % (42-78); WHITE BLOOD COUNT 8.2 10^3/uL (4.0-10.5)
[2016-07-11 05:08] LABS: ANION GAP 10 (5-19); BLOOD UREA NITROGEN 30 mg/dL (7-20); CALCIUM 8.7 mg/dL (8.4-10.2); CARBON DIOXIDE 27 mmol/L (22-30); CHLORIDE 99 mmol/L (98-107); CREATININE RESULT 2.45 mg/dL (0.52-1.25); GLUCOSE 111 mg/dL (75-110); POTASSIUM 4.1 mmol/L (3.6-5.0); SODIUM 135.8 mmol/L (137-145)
[2016-07-11] MEDS: PHOSPHORUS #1 250 MG TABLET PO SCH (06:43)
[2016-07-11] MEDS: IPRATROPIUM/ALBUTEROL 0.5-2.5 MG/3 ML AMPUL NEB SCH (08:03)
[2016-07-11] MEDS: ACETYLCYSTEINE 20% SOLN 800 MG/4 ML VIAL.NEB NEB SCH (08:04)
[2016-07-11] MEDS: MORPHINE SULFATE 10 MG/ML INJ IV PRN (08:41)
--- NOTE | 2016-07-16 16:16 | Physician Advisory Note ---
Physician Advisor ProgressNote .: Pursuant to the plan for [facility], I have reviewed the medical record for this patient. Physician Advisor Statement: Discussion - using from chart & from personal discussion today with attending Dr. Louie, & with ED physician Dr. Jefferson, for clarification of certain points: 66yo female w/ chronic co-morbidities including unresectable small cell CA of lung with indwelling pleural catheter for persistent Rt sided malignant effusion , breast CA (distant past, per attending), COPD & severe NAKUL & obesity hypoventilation syndrome w/chronic hypercapneic respiratory failure, trach & home ventilator system, paroxysmal Afib w/chronic Eliquis anticoagulation, chronic diastolic CHF, HTN, HLD, CKD stage 3 - presented 07/09 PM to ED w/SOB, productive cough, thick secretions, Pleurx catheter not draining appropriately. Per ED dr, pt had just taken her daily Eliquis before coming to ED. (+) HR 152, RR23, sat 91%, coarse breath sounds at bases, thick yellow sputum, WBC 7.0, Hgb 12.2, BUN 29, Cr 2.17, CXR = larger effusion on Rt. ED dr "unable to move the thick clot to drain the chest" using the existing Pleurx tube. He initially heard that there was no one available at [facility] to do thoracentesis at the time, so considered pursuing an ED to ED transfer or transfer to a CT surgeon at [facility] in order to achieve drainage of the effusion that night. He spoke w/CT surgeon at [facility], who asked for tPA to be given through the vac, but nursing at [facility] was unable to give this. There was a chain of phone calls between the CT surgeon, the on-call Interventional Radiologists for [facility] & for [facility], & the ED physician, with final result that the IR dr impression printer for [facility] came in & did the necessary thoracentesis to relieve the patient's acute SOB, right around midnight that night, placing a standard chest tube hooked to wall suction & allowing pt to avoid a transfer that night. (ED physician remembers the case well & reports pt was having "lots of difficulty breathing in the ED" - although early on, she was sufficiently stable to still consider immediate transfer, he knew if she had stayed at [facility] without urgent drainage, she would have certainly decompensated dangerously with very real risk for .) Therefore, IR placed a chest tube, with subsequent improvement in pt's acute SOB. Per transfer summary, 800ml of fluid was drained from the lung cavity by this chest tube before it somehow became dislodged. (This amount of drainage occurred during appx 5-6 hours time, between placement appx 12MN, & chest tube being dislodged by 6AM CXR.) Attending ordered surgeon consult & experimental preflight mechanic consult, Duonebs q6h WA, po Levaquin, VS q4h, f/u labs, specialty mattress, Inpatient status. Tank Builder And Erector ordered Chest PT. Attending Dr. Louie estimates she had been draining out about 750ml every day per Pleurx tube prior to its malfunction. With this estimated rate of re- accumulation, this pt would not be able to go without drainage for long at all without developing recurrent acute respiratory failure - hours, yes, but not days. She would not have the luxury of being able to leave hospital & come back a couple days later outpatient for a new procedure - she had to have this dealt with before she could leave. He reports a patient needing effusion drainage could go home afterwards if the solution was a working Pleurx tube - whether unobstructed or new - but [facility] does not place Pleurx tubes, & staff had so far been unable to unclog her existing one. Therefore, her only procedure option at [facility] was thoracentesis with chest tube placement, with wall suction, which required continued hospitalization until a more definitive solution was enacted. He wasn't certain what his consultants would recommend for that, but knew she had already been in hospital for 1MN by the time of the admission order & had multiple severe co-morbidities & risks, that it was quite likely she would need at least a 2nd MN at [facility]. On 07/10 AM, the new chest tube catheter was found to be dislodged out of the chest cavity into the subcutaneous space, so had to be removed. CXR at 0:600 documented partial clearing of the subpulmonic effusions since the tube placement but still "a moderate residual pleural effusion" with."unchanged Rt middle & Rt lower lobe consolidation atelectasis vs pneumonia". Impression was "slight decrease in the Rt pleural fluid compared to pre-chest tube placement film on 07/09...." Therefore, not only was the removal of nearly a liter of fluid only enough to make a "slight decrease" in the overall amount present, there was again no working drainage of the malignant effusion, which would continue to build up & produce worsening SOB/respiratory failure without something else done to stop it. Surgeon recommended considering a VATS procedure as a longer-lasting treatment instead of further chest tube attempts, suspecting the effusion was loculated & therefore that a new Pleurx catheter might simply become clogged again. Tank Builder And Erector documented pleural effusion was "large" & "accumulating on the Rt ", associated with "Acute hypercapneic respiratory failure". Attending reports that later that day, 07/10, he spoke with drs at [facility] about options for more definitiive treatment. He says the CT surgeon indicated he would likely not be able to offer surgery; attending wasn't certain whether they would end up deciding to place another Pleurx catheter, or do VATS, or what , but whatever she would need would require transfer. He did transfer summary that night in advance, but patient was not able to be transferred until the next day, 07/11, after spending a 2nd MN in hospital care & monitoring at [facility]. This was an extremely medically complex, extremely sick patient requiring multiple complex interventions at baseline just to keep her out of the hospital (trach, home ventilator, indwelling Pleurx chest tube), who had further acute decompensation due to failure of home Pleurx tube related to thick material &/ or clotting. She required urgent chest tube placement, which could not be dealt with at home & could be expected to be needed for >1MN while a longer- term solution could be arranged. Due to ongoing & recent dosing of Eliquis, she really should not have had any interventional procedure done at this point due to the risk of acute bleeding complications, but physicians' hands were forced in this case as patient could not wait for that to wear off - she needed to have relief for her breathing difficulty urgently. Therefore, she certainly required close monitoring for bleeding complications afterwards, in addition to the needed close monitoring of vital signs and breathing status. Pt also showed hemodynamic instability, even after removal of 800ml fluid - she continued to have persistent tachycardia w/HR 90s-140s, & intermittent tachypnea in the 20s, until mid-day on 07/10. She also reportedly dropped O2 sat to 79% on trach collar O2 at 03:39 on 07/10. Once the new chest tube dislodged, it was only a matter of time before the effusion would re-accumulate to the same degree as on arrival, with associated worsening respiratory failure. Decision was made on 07/10 PM to transfer pt to [facility] for CT surgeon evaluation & hope of more definitive treatment, but transfer was not able to be accomplished until after a 2nd MN of hospital care & monitoring was spent at [facility]. Continued tx & monitoring in inpatient hospital setting was medically reasonable & necessary to protect pt's health, safety, & medical condition. If attending, at time of admission order, had any thought that pt might need, & be able, to be transferred on 07/10, the appropriate initial status should have been Outpt Obs. However, even if she had been made Obs to start, she should have been changed to Inpatient status by the time she was passing her 2nd MN of hospital care at [facility], as per the CMS guidelines. Additional info: 07/09 was Saturday. [facility] had been taking a number of transfers from [facility] over the holiday weekend with several other pts waiting to be transferred from [facility] on 07/10 for procedures (this reviewer knows this because she was working hospitalist shifts at [facility] that weekend) - beds, & transferring units, availability were tight. It would not be surprising for the ED dr/attending to expect that, even if pt was going to require transfer after coming in, that it would be at least a 2nd MN before that could be accomplished. Angely Bañuelos MD [facility] Physician Advisor, Fellow of Hospital Medicine
== END 2016-07-11 09:00 | disposition short-term general hospital (02) | DRG 208 ==
LOC: ER 16:57 → EH 22:28 → 3N 07-10 01:00 → OBSVTOIN 07-10 07:33
PROVIDERS: ADMIT Family Medicine; ATTEND Family Medicine
PROC: 0W9930Z Drainage of Right Pleural Cavity with Drainage Device, Percutaneous Approach (ICD-10-PCS; principal; 2016-07-10)
PROC: 5A1945Z Respiratory Ventilation, 24-96 Consecutive Hours (ICD-10-PCS; 2016-07-10)
DX: C34.91 Malignant neoplasm of unspecified part of right bronchus or lung (principal); J96.21 Acute and chronic respiratory failure with hypoxia; J96.22 Acute and chronic respiratory failure with hypercapnia; J91.0 Malignant pleural effusion; I13.0 Hypertensive heart and chronic kidney disease with heart failure and stage 1 through stage 4 chronic kidney disease, or unspecified chronic kidney disease; I50.30 Unspecified diastolic (congestive) heart failure; N18.3 Chronic kidney disease, stage 3 (moderate); I48.2 Chronic atrial fibrillation; J44.9 Chronic obstructive pulmonary disease, unspecified; Z93.0 Tracheostomy status; G47.33 Obstructive sleep apnea (adult) (pediatric); E78.5 Hyperlipidemia, unspecified; K21.9 Gastro-esophageal reflux disease without esophagitis; F32.9 Major depressive disorder, single episode, unspecified; M19.042 Primary osteoarthritis, left hand; M19.041 Primary osteoarthritis, right hand; Z79.01 Long term (current) use of anticoagulants; Z79.899 Other long term (current) drug therapy; Z90.49 Acquired absence of other specified parts of digestive tract; Z88.8 Allergy status to other drugs, medicaments and biological substances; Z87.891 Personal history of nicotine dependence
CPT/HCPCS: 32551; 36415; 71010; 80048; 80053; 85025; 85610; 94640; 99285; C1729; C1769; C1894; J2270; J2405; J7620

== ENCOUNTER → 2016-08-22 | Outpatient (CLI) | payer MEDICARE, MEDICAID ==
--- NOTE | 2016-08-22 09:43 | RADIOLOGY REPORT (SQ) ---
EXAM DESCRIPTION: U/S ABDOMEN COMPLETE W/DOPPLER COMPLETED DATE/TIME: 08/22/2016 9:34 am REASON FOR STUDY: ASCITES (R18.8) R18.8 OTHER ASCITES COMPARISON: None. TECHNIQUE: Limited Static and real time badillo scale imaging performed of the 4 abdominal quadrants an d the midline. LIMITATIONS: None. FINDINGS: ASCITES: None identified. OTHER: No other significant finding. IMPRESSION: NO EVIDENCE FOR ASCITES. TECHNICAL DOCUMENTATION: JOB ID: [id number] [email or web address]- All Rights Reserved
== END ==
LOC: RAD 09:04
PROVIDERS: ATTEND Internal Medicine Pulmonary Disease
DX: R18.8 Other ascites (principal)
CPT/HCPCS: 76700; 93976